=== PATIENT | female | born 1960 | race Caucasian/White ===

== ENCOUNTER 2017-02-28 17:13 | Emergency (ER) | payer MEDICAID ==
[~2017-02-28] VITALS: Ht 147.3 cm; Wt 64.0 kg
[2017-02-28 18:16] VITALS: BP 162/92
== END 2017-02-28 23:08 | disposition left against medical advice (07) ==
LOC: ER 18:04
DX: R03.0 Elevated blood-pressure reading, without diagnosis of hypertension (principal); E11.9 Type 2 diabetes mellitus without complications; R11.0 Nausea; Z53.21 Procedure and treatment not carried out due to patient leaving prior to being seen by health care provider
CPT/HCPCS: 82962